=== PATIENT | male | born 1975 | race African-American/Black ===

== ENCOUNTER 2021-05-24 18:11 | Inpatient (IN) | payer OTHER ==
[2021-05-24 21:01] LABS: EOS % 1.8 % (0-4.5); HEMOGLOBIN 14.6 GM/dL (11.7-16.9); LYMPH % 28.5 % (8-40); MCH 30.8 pg (25.7-33.7); MEAN CELL VOLUME 90.6 fl (80-96); MEAN PLT VOLUME 8.6 fl (7.5-11.1); MONO % 11.2 % (3.8-10.2); NEUT % 57.5 % (42.8-82.8); PLATELET COUNT 237 10^3/uL (134-434); RBC 4.75 M/mm3 (4.00-5.60); RDW 12.7 % (11.9-15.9)
[2021-05-24 21:04] LABS: ALBUMIN 3.2 g/dl (3.4-5.0); BLOOD UREA NITROGEN 20.3 mg/dL (7-18); CALCIUM 8.4 mg/dL (8.5-10.1)
[2021-05-24 21:07] LABS: CREATININE 0.9 mg/dL (0.55-1.3)
[2021-05-24 21:09] LABS: BILIRUBIN,TOTAL 0.4 mg/dL (0.2-1); TOT PROT 6.9 g/dl (6.4-8.2)
[2021-05-24 21:10] LABS: N-TERMINAL BNP 2317.4 pg/ml (5-125)
[2021-05-24] MEDS ORDERED: FUROSEMIDE 40 MG/4 ML INJECTABLE VIAL IVPUSH ONE (22:26)
[2021-05-24] MEDS ORDERED: FUROSEMIDE 40 MG/4 ML INJECTABLE VIAL ONE (22:35)
[2021-05-24] MEDS ORDERED: ASPIRIN 325 MG ENTERIC COATED TABLET (FP) PO ONE (22:38)
[2021-05-24] MEDS ORDERED: ASPIRIN 325 MG ENTERIC COATED TABLET (FP) ONE (22:53)
[2021-05-24 23:36] LABS: URINE APPEARANCE CLEAR; URINE BILIRUBIN NEGATIVE (NEGATIVE); URINE COLOR YELLOW; URINE GLUCOSE (UA) NEGATIVE (NEGATIVE); URINE KETONE NEGATIVE (NEGATIVE); URINE LEUK ESTERASE NEGATIVE (NEGATIVE); URINE NITRITE NEGATIVE (NEGATIVE); URINE PROTEIN NEGATIVE (NEGATIVE); URINE UROBILINOGEN 0.2 mg/dL (0.2-1.0)
[2021-05-24 23:37] LABS: METHADONE, UR NEGATIVE (NEGATIVE); OPIATES, URI NEGATIVE (NEGATIVE); PHENCYCLIDINE,URINE NEGATIVE (NEGATIVE)
[2021-05-24 23:39] LABS: URINE AMPHETAMINES NEGATIVE (NEGATIVE)
[2021-05-24 23:40] LABS: URINE BARBITURATES NEGATIVE (NEGATIVE); URINE BENZODIAZEPINES NEGATIVE (NEGATIVE)
[2021-05-24 23:43] LABS: COCAINE, UR POSITIVE (NEGATIVE)
[2021-05-25] MEDS ORDERED: POTASSIUM CHLORIDE TABS 20 MEQ TABLET.ER (FP) PO ONE ×2 (00:20→00:27)
[2021-05-25 01:51] LABS: MAGNESIUM 2.1 mg/dL (1.8-2.4)
[2021-05-25] MEDS ORDERED: FUROSEMIDE 40 MG/4 ML INJECTABLE VIAL IVPUSH ONE (03:03)
[2021-05-25] MEDS ORDERED: NICOTINE 21 MG/24 HOURS TOPICAL PATCH TD PRN (03:04)
[2021-05-25] MEDS ORDERED: diazePAM 2 MG TABLET PO PRN (04:35)
[2021-05-25 06:55] LABS: HEMATOCRIT 45.1 % (35.4-49); HEMOGLOBIN 15.2 GM/dL (11.7-16.9); MCH 30.8 pg (25.7-33.7); MCHC 33.8 g/dl (32.0-35.9); MEAN CELL VOLUME 91.2 fl (80-96); MEAN PLT VOLUME 8.6 fl (7.5-11.1); PLATELET COUNT 235 10^3/uL (134-434); RBC 4.95 M/mm3 (4.00-5.60); RDW 13.2 % (11.9-15.9)
[2021-05-25 07:22] LABS: CALCIUM 8.4 mg/dL (8.5-10.1)
[2021-05-25 07:23] LABS: ALBUMIN 3.3 g/dl (3.4-5.0)
[2021-05-25 07:25] LABS: BILIRUBIN,TOTAL 0.4 mg/dL (0.2-1); PHOSPHOROUS 4.8 mg/dL (2.5-4.9)
[2021-05-25] MEDS: BUDESONIDE/FORMETEROL FUMARATE 80/4.5 mcg INHALER IH SCH ×2 (13:39→22:53)
[2021-05-25] MEDS ORDERED: ENOXAPARIN NA (PORCINE) 40 MG/0.4 ML DISP.SYRIN SQ ONE (13:41)
[2021-05-25] MEDS: ENOXAPARIN NA (PORCINE) 40 MG/0.4 ML DISP.SYRIN SQ SCH (13:45)
[2021-05-25] MEDS: ATORVASTATIN CA 80 MG TABLET (FP) PO SCH (22:11)
[2021-05-25] MEDS: CARVEDILOL 3.125 MG TABLET (FP) PO SCH ×2 (22:11→22:19)
[2021-05-26 02:37] VITALS: BMI 36.9
[2021-05-26] MEDS: LISINOPRIL 10 MG TABLET PO SCH (09:04)
[2021-05-26] MEDS: CARVEDILOL 3.125 MG TABLET (FP) PO SCH (09:04)
[2021-05-26] MEDS: ENOXAPARIN NA (PORCINE) 40 MG/0.4 ML DISP.SYRIN SQ SCH (09:04)
[2021-05-26] MEDS: BUDESONIDE/FORMETEROL FUMARATE 80/4.5 mcg INHALER IH SCH ×2 (10:45→21:09)
[2021-05-26] MEDS: FUROSEMIDE 40 MG/4 ML INJECTABLE VIAL IVPUSH SCH (14:09)
[2021-05-26] MEDS: CARVEDILOL 6.25 MG TABLET (FP) PO SCH ×2 (14:09→21:09)
[2021-05-26] MEDS: POLYETHYLENE GLYCOL (HEALTHYLAX) 3350 17 GM PACKET PO SCH (14:09)
[2021-05-26] MEDS: ATORVASTATIN CA 80 MG TABLET (FP) PO SCH (21:09)
[2021-05-26 23:18] LABS: N-TERMINAL BNP 1695.5 pg/ml (5-125)
[2021-05-27] MEDS: FUROSEMIDE 40 MG/4 ML INJECTABLE VIAL IVPUSH SCH ×2 (05:07→15:19)
[2021-05-27] MEDS: CARVEDILOL 6.25 MG TABLET (FP) PO SCH ×2 (10:01→21:13)
[2021-05-27] MEDS: LISINOPRIL 10 MG TABLET PO SCH (10:01)
[2021-05-27] MEDS: ENOXAPARIN NA (PORCINE) 40 MG/0.4 ML DISP.SYRIN SQ SCH (10:08)
[2021-05-27] MEDS: POLYETHYLENE GLYCOL (HEALTHYLAX) 3350 17 GM PACKET PO SCH (10:08)
[2021-05-27] MEDS: BUDESONIDE/FORMETEROL FUMARATE 80/4.5 mcg INHALER IH SCH ×2 (10:10→21:13)
[2021-05-27] MEDS: ATORVASTATIN CA 80 MG TABLET (FP) PO SCH (21:13)
[2021-05-28] MEDS: FUROSEMIDE 40 MG/4 ML INJECTABLE VIAL IVPUSH SCH ×2 (05:38→14:25)
[2021-05-28 08:24] LABS: BASO % 0.4 % (0-2.0); EOS % 1.6 % (0-4.5); HEMATOCRIT 45.4 % (35.4-49); HEMOGLOBIN 15.4 GM/dL (11.7-16.9); LYMPH % 23.8 % (8-40); MCH 30.5 pg (25.7-33.7); MCHC 33.9 g/dl (32.0-35.9); MEAN CELL VOLUME 90.1 fl (80-96); MEAN PLT VOLUME 8.8 fl (7.5-11.1); MONO % 6.9 % (3.8-10.2); NEUT % 67.3 % (42.8-82.8); PLATELET COUNT 229 10^3/uL (134-434); RBC 5.04 M/mm3 (4.00-5.60); RDW 12.8 % (11.9-15.9); WHITE BLOOD COUNT 6.9 K/mm3 (4.0-10.0)
[2021-05-28 08:48] LABS: ALBUMIN 3.4 g/dl (3.4-5.0); CALCIUM 8.8 mg/dL (8.5-10.1)
[2021-05-28 08:49] LABS: MAGNESIUM 2.1 mg/dL (1.8-2.4)
[2021-05-28 08:52] LABS: PHOSPHOROUS 5.7 mg/dL (2.5-4.9)
[2021-05-28 08:53] LABS: BILIRUBIN,TOTAL 0.6 mg/dL (0.2-1); TOT PROT 7.6 g/dl (6.4-8.2)
[2021-05-28] MEDS: POLYETHYLENE GLYCOL (HEALTHYLAX) 3350 17 GM PACKET PO SCH (09:41)
[2021-05-28] MEDS: BUDESONIDE/FORMETEROL FUMARATE 80/4.5 mcg INHALER IH SCH ×2 (09:41→22:05)
[2021-05-28] MEDS: LISINOPRIL 10 MG TABLET PO SCH (09:41)
[2021-05-28] MEDS: CARVEDILOL 6.25 MG TABLET (FP) PO SCH (09:41)
[2021-05-28] MEDS: ENOXAPARIN NA (PORCINE) 40 MG/0.4 ML DISP.SYRIN SQ SCH (09:41)
[2021-05-28] MEDS ORDERED: POTASSIUM CHLORIDE TABS 20 MEQ TABLET.ER (FP) PO ONE (11:30)
[2021-05-28] MEDS: CARVEDILOL 12.5 MG TABLET (FP) PO SCH (21:23)
[2021-05-28] MEDS: ATORVASTATIN CA 80 MG TABLET (FP) PO SCH (21:23)
[2021-05-29] MEDS: FUROSEMIDE 40 MG/4 ML INJECTABLE VIAL IVPUSH SCH ×2 (05:36→13:33)
[2021-05-29] MEDS: ENOXAPARIN NA (PORCINE) 40 MG/0.4 ML DISP.SYRIN SQ SCH (09:10)
[2021-05-29] MEDS: CARVEDILOL 12.5 MG TABLET (FP) PO SCH ×2 (09:10→21:24)
[2021-05-29] MEDS: POLYETHYLENE GLYCOL (HEALTHYLAX) 3350 17 GM PACKET PO SCH (09:10)
[2021-05-29] MEDS: LISINOPRIL 10 MG TABLET PO SCH (09:11)
[2021-05-29] MEDS: BUDESONIDE/FORMETEROL FUMARATE 80/4.5 mcg INHALER IH SCH ×2 (09:11→21:25)
[2021-05-29] MEDS: ACETAMINOPHEN 325 MG TABLET (FP) PO PRN ×2 (09:14→21:24)
[2021-05-29] MEDS ORDERED: ALBUTEROL SO4 2.5/IPRATROPIUM 0.5 INH SOL 3 ML VIAL.NEB. NEB PRN (15:01)
[2021-05-29] MEDS ORDERED: LISINOPRIL 10 MG TABLET PO SCH (15:04)
[2021-05-29] MEDS ORDERED: LISINOPRIL 10 MG TABLET PO ONE (15:04)
[2021-05-29] MEDS: TIOTROPIUM BROMIDE 2.5 MCG (SPIRIVA) RESPIMAT INHALER IH SCH ×2 (16:24→18:05)
[2021-05-29] MEDS: ATORVASTATIN CA 80 MG TABLET (FP) PO SCH (21:24)
[2021-05-30] MEDS: FUROSEMIDE 40 MG/4 ML INJECTABLE VIAL IVPUSH SCH (05:51)
[2021-05-30] MEDS: ACETAMINOPHEN 325 MG TABLET (FP) PO PRN ×2 (06:34→19:33)
[2021-05-30 08:32] LABS: CALCIUM 8.7 mg/dL (8.5-10.1)
[2021-05-30 08:33] LABS: BLOOD UREA NITROGEN 14.8 mg/dL (7-18)
[2021-05-30 08:35] LABS: CREATININE 1.1 mg/dL (0.55-1.3)
[2021-05-30] MEDS: CARVEDILOL 12.5 MG TABLET (FP) PO SCH ×2 (10:37→21:24)
[2021-05-30] MEDS: LISINOPRIL 10 MG TABLET PO SCH (10:37)
[2021-05-30] MEDS: ENOXAPARIN NA (PORCINE) 40 MG/0.4 ML DISP.SYRIN SQ SCH (10:37)
[2021-05-30] MEDS: POLYETHYLENE GLYCOL (HEALTHYLAX) 3350 17 GM PACKET PO SCH (10:37)
[2021-05-30] MEDS: BUDESONIDE/FORMETEROL FUMARATE 80/4.5 mcg INHALER IH SCH ×2 (11:00→21:27)
[2021-05-30] MEDS: TIOTROPIUM BROMIDE 2.5 MCG (SPIRIVA) RESPIMAT INHALER IH SCH (11:00)
[2021-05-30] MEDS: ATORVASTATIN CA 80 MG TABLET (FP) PO SCH (21:24)
[2021-05-31 08:41] LABS: BLOOD UREA NITROGEN 14.2 mg/dL (7-18); CALCIUM 8.5 mg/dL (8.5-10.1)
[2021-05-31 08:45] LABS: CREATININE 0.9 mg/dL (0.55-1.3)
[2021-05-31] MEDS: LISINOPRIL 10 MG TABLET PO SCH (09:32)
[2021-05-31] MEDS: CARVEDILOL 12.5 MG TABLET (FP) PO SCH ×2 (09:32→21:09)
[2021-05-31] MEDS: POLYETHYLENE GLYCOL (HEALTHYLAX) 3350 17 GM PACKET PO SCH (09:32)
[2021-05-31] MEDS: ENOXAPARIN NA (PORCINE) 40 MG/0.4 ML DISP.SYRIN SQ SCH (09:33)
[2021-05-31] MEDS: TIOTROPIUM BROMIDE 2.5 MCG (SPIRIVA) RESPIMAT INHALER IH SCH (09:40)
[2021-05-31] MEDS: BUDESONIDE/FORMETEROL FUMARATE 80/4.5 mcg INHALER IH SCH ×2 (09:40→21:09)
[2021-05-31] MEDS ORDERED: FUROSEMIDE 40 MG/4 ML INJECTABLE VIAL IVPUSH SCH (10:00)
[2021-05-31 12:31] LABS: HEMATOCRIT 44.5 % (35.4-49); HEMOGLOBIN 15.1 GM/dL (11.7-16.9); MCH 30.9 pg (25.7-33.7); MCHC 33.9 g/dl (32.0-35.9); MEAN CELL VOLUME 91.1 fl (80-96); MEAN PLT VOLUME 8.9 fl (7.5-11.1); PLATELET COUNT 187 10^3/uL (134-434); RBC 4.88 M/mm3 (4.00-5.60); RDW 12.8 % (11.9-15.9); WHITE BLOOD COUNT 3.9 K/mm3 (4.0-10.0)
[2021-05-31 12:49] LABS: CALCIUM 8.7 mg/dL (8.5-10.1)
[2021-05-31 12:50] LABS: ALBUMIN 3.4 g/dl (3.4-5.0); BLOOD UREA NITROGEN 14.1 mg/dL (7-18)
[2021-05-31 12:55] LABS: BILIRUBIN,TOTAL 0.7 mg/dL (0.2-1); TOT PROT 7.2 g/dl (6.4-8.2)
[2021-05-31] MEDS: ATORVASTATIN CA 80 MG TABLET (FP) PO SCH (21:09)
[2021-05-31] MEDS ORDERED: SODIUM CHLORIDE NASAL SPRAY 44 ML BOTTLE NS ONE (21:42)
[2021-06-01 05:29] VITALS: TEMP 98
[2021-06-01] MEDS ORDERED: FUROSEMIDE 40 MG TABLET (FP) PO SCH (06:00)
[2021-06-01 08:31] VITALS: BP 139/98; PULSE 89
[2021-06-01] MEDS: CARVEDILOL 12.5 MG TABLET (FP) PO SCH (09:35)
[2021-06-01] MEDS: LISINOPRIL 10 MG TABLET PO SCH (09:35)
[2021-06-01] MEDS: BUDESONIDE/FORMETEROL FUMARATE 80/4.5 mcg INHALER IH SCH (09:39)
[2021-06-01] MEDS: TIOTROPIUM BROMIDE 2.5 MCG (SPIRIVA) RESPIMAT INHALER IH SCH (09:39)
[2021-06-01] MEDS: POLYETHYLENE GLYCOL (HEALTHYLAX) 3350 17 GM PACKET PO SCH (09:40)
[2021-06-01] MEDS: ENOXAPARIN NA (PORCINE) 40 MG/0.4 ML DISP.SYRIN SQ SCH (09:40)
== END 2021-06-01 11:24 | disposition home or self-care (01) | DRG 194 ==
LOC: JER 18:11 → JERBED 22:27 → INTOOBSV 22:27 → J4W 05-25 20:56 → OBSVTOIN 05-27 11:33 → J4W 05-27 23:35
PROVIDERS: ADMIT Internal Medicine; ATTEND Internal Medicine
DX: I11.0 Hypertensive heart disease with heart failure (principal); I50.23 Acute on chronic systolic (congestive) heart failure; F17.210 Nicotine dependence, cigarettes, uncomplicated; E78.5 Hyperlipidemia, unspecified; J44.1 Chronic obstructive pulmonary disease with (acute) exacerbation; F14.90 Cocaine use, unspecified, uncomplicated; K59.09 Other constipation; E66.9 Obesity, unspecified; Z68.36 Body mass index [BMI] 36.0-36.9, adult; Z91.14 Patient's other noncompliance with medication regimen
CPT/HCPCS: 36415; 71046-TC-FY; 80048; 80053; 80061; 80307; 81003; 82962; 83036; 83690; 83735; 83880; 84100; 84443; 84484; 85025; 85027; 87086; 93005; 93010; 93306-TC; 94761; 97116-GP; 97161-GP; 99285-25; C9803; G0378; U0003; U0005